=== PATIENT | female | born 1955 | race Caucasian/White ===

== ENCOUNTER 2022-05-24 17:05 | Emergency (ER) | payer MEDICARE, BC ==
[2022-05-24] MEDS ORDERED: HYDROmorphone 1 MG/ML Syringe IM ONE (17:30)
[2022-05-24] MEDS ORDERED: Diphtheria,Pertussis(Acell),Tetanus Vaccine 0.5 ML Syringe IM ONE (17:30)
[2022-05-24] MEDS ORDERED: Bupivacaine 0.5% 10 ML SDV INJECT ONE (18:07)
[2022-05-24] MEDS ORDERED: Lidocaine 1% 10 ML MDV INJECT ONE (18:07)
[2022-05-24] MEDS ORDERED: Cefdinir 300 MG Cap PO ONE (18:14)
== END 2022-05-24 19:21 | disposition home or self-care (01) ==
LOC: JD.ED 17:05
DX: S62.632B Displaced fracture of distal phalanx of right middle finger, initial encounter for open fracture (principal); Z23 Encounter for immunization; W23.1XXA Caught, crushed, jammed, or pinched between stationary objects, initial encounter
CPT/HCPCS: 73140; 90471; 90715; 96372; 99283; A9270; J1170; J3490

== ENCOUNTER 2022-05-27 11:45 | Day surgery (SDC) | payer MEDICARE, BC ==
[~2022-05-27 11:45] MED LIST: Lactated Ringers 1,000 ML IV SCH; Lidocaine 1%/Sod Bicarbonate in NS 8.4% 1 ML Syringe IDERM PRN; Sodium Chloride 0.9% 10 ML Syringe FLUSH PRN; Sodium Chloride 0.9% 10 ML Syringe FLUSH SCH
[2022-05-27] MEDS ORDERED: Lidocaine 1% 5 ML VIAL ONE (11:58)
[2022-05-27] MEDS ORDERED: Propofol 200 MG/20 ML SDV ONE ×3 (11:58→13:32)
[2022-05-27] MEDS ORDERED: Midazolam 1 MG/ML 2 ML SDV ONE (11:59)
[2022-05-27] MEDS ORDERED: Bupivacaine 0.25% 10 ML SDV ONE (12:01)
[2022-05-27] MEDS ORDERED: Lidocaine 1% 10 ML MDV ONE (12:01)
[2022-05-27] MEDS ORDERED: Ondansetron 4 MG/2 ML SDV IVPUSH PRN (12:24)
[2022-05-27] MEDS ORDERED: fentaNYL 100 MCG/2 ML SDV IVPUSH PRN (12:24)
[2022-05-27] MEDS ORDERED: HYDROmorphone 0.5 MG/0.5 ML Syringe IVPUSH PRN (12:24)
[2022-05-27] MEDS ORDERED: ceFAZolin 2 GM Vial ONE (13:00)
[2022-05-27] MEDS ORDERED: Ondansetron 4 MG/2 ML SDV ONE (13:11)
[2022-05-27] MEDS ORDERED: oxyCODONE 5 MG Tab PO PRN (14:21)
== END 2022-05-27 14:40 | disposition home or self-care (01) ==
LOC: JD.SDS 11:45
PROVIDERS: ATTEND Orthopaedic Surgery
DX: S68.112A Complete traumatic metacarpophalangeal amputation of right middle finger, initial encounter (principal); F17.210 Nicotine dependence, cigarettes, uncomplicated; E78.00 Pure hypercholesterolemia, unspecified; Z79.899 Other long term (current) drug therapy; Z98.890 Other specified postprocedural states
CPT/HCPCS: 26951; J0690; J2250; J2405; J2704; J3490; J7120